=== PATIENT | male | born 1965 | race Caucasian/White ===

== ENCOUNTER 2017-04-05 10:36 | Emergency (ER) | payer OTHER ==
[~2017-04-05] VITALS: Ht 177.8 cm; Wt 90.7 kg
[~2017-04-05 10:36] MED LIST: DEXACIDIN EYE DR5 ML OP; IBUPROFEN 800800 M1 PO
[2017-04-05] MEDS ORDERED: NORCO 5-325 TA1 EACH PO (11:41)
== END 2017-04-05 12:45 | disposition home or self-care (01) ==
LOC: ER 10:36
DX: S32.029A Unspecified fracture of second lumbar vertebra, initial encounter for closed fracture (principal); S20.219A Contusion of unspecified front wall of thorax, initial encounter; W00.9XXA Unspecified fall due to ice and snow, initial encounter; Y93.89 Activity, other specified; Y92.89 Other specified places as the place of occurrence of the external cause; Y99.8 Other external cause status